=== PATIENT | female | born 1945 | race Caucasian/White ===

== ENCOUNTER → 2016-08-15 | Outpatient (CLI) | payer MEDICARE ==
[2016-08-05 08:29] VITALS: BP 130/61
[~2016-08-15] MED LIST: ASPI325T8 PO; METF500T4 PO; METO25TA4 PO; OLME20TA19 PO; PRAV20TA2 PO; PRAV40TA2 PO
--- NOTE | 2016-08-15 12:42 | RAD ---
Chest, 2 views, 08/15/2016: History: Postop bypass surgery Comparison is made to a study from 08/03/2016. The heart is at the upper limits of normal in size. There is calcific plaquing of the aorta. The pulmonary vascularity is normal. Left basilar atelectasis/infiltrate has partially cleared. No right lung infiltrate is seen. There is a small amount of pleural fluid in the posterior costophrenic angles bilaterally. There is no evidence of pneumothorax. Moderate spurring is present in the spine. IMPRESSION: 1. Small residual bilateral pleural effusions. 2. Improving mild left basilar atelectasis/infiltrate.
== END | disposition home or self-care (01) ==
LOC: RAD 12:01
PROVIDERS: ATTEND Thoracic Surgery (Cardiothoracic Vascular Surgery)
DX: Z95.1 Presence of aortocoronary bypass graft (principal)
CPT/HCPCS: 71020

== ENCOUNTER → 2016-08-26 | Outpatient (CLI) | payer MEDICARE ==
[2016-08-05 08:29] VITALS: BP 130/61
== END | disposition home or self-care (01) ==
LOC: PMGWOUND 10:57
PROVIDERS: ATTEND Emergency Medicine Undersea and Hyperbaric Medicine
DX: T81.31XD Disruption of external operation (surgical) wound, not elsewhere classified, subsequent encounter (principal); E78.00 Pure hypercholesterolemia, unspecified; I10 Essential (primary) hypertension; E78.5 Hyperlipidemia, unspecified; E66.01 Morbid (severe) obesity due to excess calories; Z68.43 Body mass index [BMI] 50.0-59.9, adult; E11.9 Type 2 diabetes mellitus without complications; I21.4 Non-ST elevation (NSTEMI) myocardial infarction; Z90.710 Acquired absence of both cervix and uterus; Z95.1 Presence of aortocoronary bypass graft; Y83.8 Other surgical procedures as the cause of abnormal reaction of the patient, or of later complication, without mention of misadventure at the time of the procedure
CPT/HCPCS: 97605; 97607

== ENCOUNTER → 2016-08-29 | Outpatient (CLI) | payer MEDICARE ==
[2016-08-05 08:29] VITALS: BP 130/61
== END | disposition home or self-care (01) ==
LOC: PMGWOUND 14:07
PROVIDERS: ATTEND Emergency Medicine Undersea and Hyperbaric Medicine
DX: T81.31XD Disruption of external operation (surgical) wound, not elsewhere classified, subsequent encounter (principal); I10 Essential (primary) hypertension; E78.5 Hyperlipidemia, unspecified; E66.01 Morbid (severe) obesity due to excess calories; Z68.43 Body mass index [BMI] 50.0-59.9, adult; I21.4 Non-ST elevation (NSTEMI) myocardial infarction; E78.00 Pure hypercholesterolemia, unspecified; E11.9 Type 2 diabetes mellitus without complications; Z95.1 Presence of aortocoronary bypass graft; Z90.710 Acquired absence of both cervix and uterus; Y83.8 Other surgical procedures as the cause of abnormal reaction of the patient, or of later complication, without mention of misadventure at the time of the procedure
CPT/HCPCS: 97597; 97607

== ENCOUNTER → 2016-09-02 | Outpatient (CLI) | payer MEDICARE ==
[2016-08-05 08:29] VITALS: BP 130/61
== END | disposition home or self-care (01) ==
LOC: PMGWOUND 12:34
PROVIDERS: ATTEND Emergency Medicine Undersea and Hyperbaric Medicine
DX: T81.31XD Disruption of external operation (surgical) wound, not elsewhere classified, subsequent encounter (principal); E78.00 Pure hypercholesterolemia, unspecified; E11.9 Type 2 diabetes mellitus without complications; I10 Essential (primary) hypertension; E78.5 Hyperlipidemia, unspecified; I25.10 Atherosclerotic heart disease of native coronary artery without angina pectoris; E66.01 Morbid (severe) obesity due to excess calories; Z68.43 Body mass index [BMI] 50.0-59.9, adult; Z95.1 Presence of aortocoronary bypass graft; Z90.710 Acquired absence of both cervix and uterus; Y83.8 Other surgical procedures as the cause of abnormal reaction of the patient, or of later complication, without mention of misadventure at the time of the procedure
CPT/HCPCS: 97597; 97607

== ENCOUNTER → 2016-09-05 | Outpatient (CLI) | payer MEDICARE ==
[2016-08-05 08:29] VITALS: BP 130/61
== END | disposition home or self-care (01) ==
LOC: PMGWOUND 13:50
PROVIDERS: ATTEND Emergency Medicine Undersea and Hyperbaric Medicine
DX: T81.31XD Disruption of external operation (surgical) wound, not elsewhere classified, subsequent encounter (principal); E11.9 Type 2 diabetes mellitus without complications; E78.00 Pure hypercholesterolemia, unspecified; E78.5 Hyperlipidemia, unspecified; I25.10 Atherosclerotic heart disease of native coronary artery without angina pectoris; E66.01 Morbid (severe) obesity due to excess calories; Z68.43 Body mass index [BMI] 50.0-59.9, adult; Z95.1 Presence of aortocoronary bypass graft; Z90.710 Acquired absence of both cervix and uterus; Y83.8 Other surgical procedures as the cause of abnormal reaction of the patient, or of later complication, without mention of misadventure at the time of the procedure
CPT/HCPCS: 97607

== ENCOUNTER → 2016-09-09 | Outpatient (CLI) | payer MEDICARE ==
[2016-08-05 08:29] VITALS: BP 130/61
== END | disposition home or self-care (01) ==
LOC: PMGWOUND 11:07
PROVIDERS: ATTEND Emergency Medicine Undersea and Hyperbaric Medicine
DX: T81.31XD Disruption of external operation (surgical) wound, not elsewhere classified, subsequent encounter (principal); E78.00 Pure hypercholesterolemia, unspecified; I25.10 Atherosclerotic heart disease of native coronary artery without angina pectoris; E78.5 Hyperlipidemia, unspecified; I10 Essential (primary) hypertension; E66.01 Morbid (severe) obesity due to excess calories; Z68.43 Body mass index [BMI] 50.0-59.9, adult; Z95.1 Presence of aortocoronary bypass graft; Z90.710 Acquired absence of both cervix and uterus; Y83.8 Other surgical procedures as the cause of abnormal reaction of the patient, or of later complication, without mention of misadventure at the time of the procedure
CPT/HCPCS: 97597

== ENCOUNTER → 2016-09-16 | Outpatient (CLI) | payer MEDICARE ==
[2016-08-05 08:29] VITALS: BP 130/61
== END | disposition home or self-care (01) ==
LOC: PMGWOUND 10:31
PROVIDERS: ATTEND Emergency Medicine Undersea and Hyperbaric Medicine
DX: T81.31XD Disruption of external operation (surgical) wound, not elsewhere classified, subsequent encounter (principal); I10 Essential (primary) hypertension; E78.5 Hyperlipidemia, unspecified; E66.01 Morbid (severe) obesity due to excess calories; Z68.43 Body mass index [BMI] 50.0-59.9, adult; E78.00 Pure hypercholesterolemia, unspecified; E11.69 Type 2 diabetes mellitus with other specified complication; I21.4 Non-ST elevation (NSTEMI) myocardial infarction; Z95.1 Presence of aortocoronary bypass graft; Z90.710 Acquired absence of both cervix and uterus; Y83.8 Other surgical procedures as the cause of abnormal reaction of the patient, or of later complication, without mention of misadventure at the time of the procedure
CPT/HCPCS: 97597

== ENCOUNTER → 2016-09-23 | Outpatient (CLI) | payer MEDICARE ==
[2016-08-05 08:29] VITALS: BP 130/61
== END | disposition home or self-care (01) ==
LOC: PMGWOUND 10:06
PROVIDERS: ATTEND Emergency Medicine Undersea and Hyperbaric Medicine
DX: T81.31XD Disruption of external operation (surgical) wound, not elsewhere classified, subsequent encounter (principal); I10 Essential (primary) hypertension; E78.5 Hyperlipidemia, unspecified; E66.01 Morbid (severe) obesity due to excess calories; Z68.43 Body mass index [BMI] 50.0-59.9, adult; I21.4 Non-ST elevation (NSTEMI) myocardial infarction; E78.00 Pure hypercholesterolemia, unspecified; I25.10 Atherosclerotic heart disease of native coronary artery without angina pectoris; Z95.1 Presence of aortocoronary bypass graft; Z90.710 Acquired absence of both cervix and uterus; Y83.8 Other surgical procedures as the cause of abnormal reaction of the patient, or of later complication, without mention of misadventure at the time of the procedure
CPT/HCPCS: 97597

== ENCOUNTER → 2016-09-30 | Outpatient (CLI) | payer MEDICARE ==
[2016-08-05 08:29] VITALS: BP 130/61
== END | disposition home or self-care (01) ==
LOC: PMGWOUND 10:41
PROVIDERS: ATTEND Emergency Medicine Undersea and Hyperbaric Medicine
DX: T81.31XD Disruption of external operation (surgical) wound, not elsewhere classified, subsequent encounter (principal); E78.00 Pure hypercholesterolemia, unspecified; E11.9 Type 2 diabetes mellitus without complications; I25.10 Atherosclerotic heart disease of native coronary artery without angina pectoris; E66.01 Morbid (severe) obesity due to excess calories; Z68.43 Body mass index [BMI] 50.0-59.9, adult; I10 Essential (primary) hypertension; E78.5 Hyperlipidemia, unspecified; I25.2 Old myocardial infarction; Z95.1 Presence of aortocoronary bypass graft; Z90.710 Acquired absence of both cervix and uterus; Y83.8 Other surgical procedures as the cause of abnormal reaction of the patient, or of later complication, without mention of misadventure at the time of the procedure
CPT/HCPCS: 99214

== ENCOUNTER → 2016-10-07 | Outpatient (CLI) | payer MEDICARE ==
[2016-08-05 08:29] VITALS: BP 130/61
== END | disposition home or self-care (01) ==
LOC: PMGWOUND 09:03
PROVIDERS: ATTEND Emergency Medicine Undersea and Hyperbaric Medicine
DX: T81.31XD Disruption of external operation (surgical) wound, not elsewhere classified, subsequent encounter (principal); I25.10 Atherosclerotic heart disease of native coronary artery without angina pectoris; I10 Essential (primary) hypertension; E78.5 Hyperlipidemia, unspecified; E66.01 Morbid (severe) obesity due to excess calories; E78.00 Pure hypercholesterolemia, unspecified; I25.2 Old myocardial infarction; Z95.1 Presence of aortocoronary bypass graft; Z90.710 Acquired absence of both cervix and uterus; Z68.43 Body mass index [BMI] 50.0-59.9, adult; Y83.8 Other surgical procedures as the cause of abnormal reaction of the patient, or of later complication, without mention of misadventure at the time of the procedure
CPT/HCPCS: 97597

== ENCOUNTER → 2016-10-17 | Outpatient (CLI) | payer MEDICARE ==
[2016-08-05 08:29] VITALS: BP 130/61
== END | disposition home or self-care (01) ==
LOC: PMGWOUND 08:14
PROVIDERS: ATTEND Emergency Medicine Undersea and Hyperbaric Medicine
DX: T81.31XD Disruption of external operation (surgical) wound, not elsewhere classified, subsequent encounter (principal); E11.9 Type 2 diabetes mellitus without complications; I25.10 Atherosclerotic heart disease of native coronary artery without angina pectoris; I10 Essential (primary) hypertension; E78.5 Hyperlipidemia, unspecified; E66.01 Morbid (severe) obesity due to excess calories; I25.2 Old myocardial infarction; Z68.43 Body mass index [BMI] 50.0-59.9, adult; Z90.710 Acquired absence of both cervix and uterus; Z95.1 Presence of aortocoronary bypass graft; Y83.8 Other surgical procedures as the cause of abnormal reaction of the patient, or of later complication, without mention of misadventure at the time of the procedure
CPT/HCPCS: 99213

== ENCOUNTER → 2016-10-31 | Outpatient (CLI) | payer MEDICARE ==
[2016-08-05 08:29] VITALS: BP 130/61
== END | disposition home or self-care (01) ==
LOC: PMGWOUND 09:16
PROVIDERS: ATTEND Emergency Medicine Undersea and Hyperbaric Medicine
DX: T81.31XD Disruption of external operation (surgical) wound, not elsewhere classified, subsequent encounter (principal); I25.10 Atherosclerotic heart disease of native coronary artery without angina pectoris; I10 Essential (primary) hypertension; E78.5 Hyperlipidemia, unspecified; E66.01 Morbid (severe) obesity due to excess calories; I25.2 Old myocardial infarction; Z95.1 Presence of aortocoronary bypass graft; Z90.710 Acquired absence of both cervix and uterus; Z68.43 Body mass index [BMI] 50.0-59.9, adult; Y83.8 Other surgical procedures as the cause of abnormal reaction of the patient, or of later complication, without mention of misadventure at the time of the procedure
CPT/HCPCS: 99212

== ENCOUNTER → 2017-01-31 | Outpatient (CLI) | payer MEDICARE ==
[2016-08-05 08:29] VITALS: BP 130/61
--- NOTE | 2017-01-31 15:38 | CARD ---
APPROVED REPORT EXAM: Two-dimensional and M-mode echocardiogram with Doppler and color Doppler. Other Information Quality : Good INDICATION CAD 2D DIMENSIONS Left Atrium(2D)2.9 (1.6-4.0cm)IVSd1.3 (0.7-1.1cm) Aortic Root(2D)2.8 (2.0-3.7cm)LVDd3.8 (3.9-5.9cm) LVOT Diameter1.8 (1.8-2.4cm)PWd1.2 (0.7-1.1cm) LVDs2.4 (2.5-4.0cm)FS (%) 37.6 % SV43.2 mlLVEF(%)60.0 (>50%) Aortic Valve AoV Peak Mark.131.8cm/sAoV VTI30.7cm AO Peak GR.7.0mmHgLVOT Peak Makr.134.3cm/s AO Mean GR.4mmHgAVA (VMAX)2.51cm2 Mitral Valve MV E Eqwwffmb08.1cm/sMV DECEL [id number] MV A Fstyjyej75.8cm/sE/A Ratio1.0 Tricuspid Valve TR P. Vpxypcwz332sq/sRAP [id number] TR Peak Gr.[id number] LEFT VENTRICLE The left ventricle is normal size. There is mild concentric left ventricular hypertrophy. Left ventri yadi systolic function is normal. The Ejection Fraction is 60%. There is normal LV segmental wall edis on. Tissue Doppler imaging reveals mild left ventricular diastolic dysfunction. RIGHT VENTRICLE The right ventricle is normal size. The right ventricular systolic function is normal. ATRIA The left atrium size is normal. The right atrium size is normal. The interatrial septum is intact wit h no evidence for an atrial septal defect or patent foramen ovale as noted on 2-D or Doppler imaging. AORTIC VALVE The aortic valve is mildly thickened. Doppler and Color Flow revealed no significant aortic regurgita tion. There is no significant aortic valvular stenosis. MITRAL VALVE The mitral valve is calcified but opens well. There is no evidence of mitral valve prolapse. There is no mitral valve stenosis. Doppler and Color-flow revealed trace mitral regurgitation. TRICUSPID VALVE The tricuspid valve is normal in structure. Doppler and Color Flow revealed mild tricuspid regurgitat ion. There is no pulmonary hypertension. The PA pressure was estimated at 25 mmHg. There is no tricus pid valve prolapse or vegetation. There is no tricuspid valve stenosis. PULMONIC VALVE The pulmonary valve is normal in structure. Doppler and Color Flow revealed mild pulmonic valvular re gurgitation. There is no pulmonic valvular stenosis. GREAT VESSELS The aortic root is normal in size. The ascending aorta is normal in size. The IVC is normal in size a nd collapses >50% with inspiration. PERICARDIAL EFFUSION There is no pleural effusion. There is no evidence of significant pericardial effusion. Critical Notification Critical Value: No <Conclusion> Left ventricle systolic function is normal. The Ejection Fraction is 60%. There is mild concentric left ventricular hypertrophy. Tissue Doppler imaging reveals mild left ventricular diastolic dysfunction. The left atrium size is normal. The right atrium size is normal. The aortic valve is mildly thickened. Doppler and Color-flow revealed trace mitral regurgitation. The mitral valve is calcified but opens well. Doppler and Color Flow revealed mild tricuspid regurgitation. There is no pulmonary hypertension. The PA pressure was estimated at 25 mmHg. Doppler and Color Flow revealed mild pulmonic valvular regurgitation. There is no evidence of significant pericardial effusion.
== END | disposition home or self-care (01) ==
LOC: ECHO 08:46
PROVIDERS: ATTEND Internal Medicine Cardiovascular Disease
DX: I25.10 Atherosclerotic heart disease of native coronary artery without angina pectoris (principal); I27.20 Pulmonary hypertension, unspecified; I08.8 Other rheumatic multiple valve diseases; Z95.1 Presence of aortocoronary bypass graft
CPT/HCPCS: 93306